=== PATIENT | female | born 2000 | race Native Hawaiian/Other Pacific Islander ===

== ENCOUNTER 2020-09-22 00:01 | Emergency (ER) | payer OTHER ==
[~2020-09-22] VITALS: Ht 170.2 cm; Wt 104.3 kg
[2020-09-22 00:58] LABS: POTASSIUM 3.8 mmol/L (3.6-5.2)
[2020-09-22 01:03] LABS: PLATELET COUNT 297 K/uL (152-353)
[2020-09-22 02:10] VITALS: BP 150/90; TEMP 98.3
== END 2020-09-22 02:10 | disposition home or self-care (01) ==
LOC: ED 00:01
PROVIDERS: Hospitalist
DX: O20.0 Threatened abortion (principal); Z3A.01 Less than 8 weeks gestation of pregnancy
CPT/HCPCS: 36415; 80053; 81000; 84702; 85027; 85610; 85730; 87086; 87088; 96360; 99284

== ENCOUNTER 2020-09-24 17:44 | Emergency (ER) | payer OTHER ==
[~2020-09-24] VITALS: Ht 170.2 cm; Wt 104.3 kg
[2020-09-24 17:54] VITALS: BP 142/87; TEMP 97.6
== END 2020-09-24 19:02 | disposition home or self-care (01) ==
LOC: ED 17:44
DX: O20.0 Threatened abortion (principal)
CPT/HCPCS: 99282

== ENCOUNTER 2021-05-08 21:07 | Emergency (ER) | payer OTHER ==
[~2021-05-08] VITALS: Ht 170.2 cm; Wt 104.3 kg
[2021-05-09 00:49] VITALS: BP 124/70; TEMP 98.2
== END 2021-05-09 00:49 | disposition home or self-care (01) ==
LOC: ED 21:07
DX: R10.30 Lower abdominal pain, unspecified (principal); Z3A.29 29 weeks gestation of pregnancy
CPT/HCPCS: 81000; 99284